=== PATIENT | female | born 1955 | race Asian ===

== ENCOUNTER 2020-03-26 07:56 | Outpatient (CLI) | payer OTHER ==
[~2020-03-26 07:56] MED LIST: AMOX500C85 PO; CLARITIN10 MG OR; HYDROCOD/HOM1 ML PO; MEDROL DOSEPAK4 MG OR
== END 2020-03-26 22:01 | disposition home or self-care (01) ==
LOC: RAD 07:56
PROVIDERS: ATTEND Nurse Practitioner Family
DX: E55.9 Vitamin D deficiency, unspecified (principal); E56.8 Deficiency of other vitamins; I73.00 Raynaud's syndrome without gangrene; M05.79 Rheumatoid arthritis with rheumatoid factor of multiple sites without organ or systems involvement; M35.1 Other overlap syndromes; Z68.29 Body mass index [BMI] 29.0-29.9, adult; Z79.899 Other long term (current) drug therapy

== ENCOUNTER 2020-04-10 07:36 | Outpatient (CLI) | payer OTHER ==
[~2020-04-10] VITALS: Ht 167.6 cm; Wt 83.5 kg
[2020-04-10 08:05] VITALS: BP 149/67; TEMP 98.6
== END 2020-04-10 14:00 | disposition home or self-care (01) ==
LOC: INF 07:36
PROVIDERS: ATTEND Internal Medicine
DX: M05.79 Rheumatoid arthritis with rheumatoid factor of multiple sites without organ or systems involvement (principal)
CPT/HCPCS: 93041; 96365; 96366; 96375; J1200; J2930; J9312